=== PATIENT | female | born 1940 | race Caucasian/White ===

== ENCOUNTER → 2018-07-24 12:48 | Outpatient (CLI) | payer OTHER, SELFPAY ==
--- NOTE | 2018-07-24 | DI.MRI.S_ITS ---
PROCEDURE: MR LUMBAR SPINE WO CON INDICATIONS: LUMBAR SPINE PAIN TECHNIQUE: Noncontrast sagittal T1 spin echo and T2 fast echo, sagittal STIR, axial T1 and T2 fast spin echo through the lumbar spine. In cases with scoliosis, additional coronal T2 fast spin echo may be performed. COMPARISON: None. FINDINGS: Image quality: Excellent. Alignment and Curvature: There is trace retrolithesis of L1 on L2, L2 on L3, L3 on L4, trace anterolithesis of L4 on L5. Bone Marrow: Marrow is of normal overall signal. Severe reactive endplate changes are present at T12-L1, moderate at L3-4, mild at L1-2, L2-3, No acute vertebral body compression fractures. Spinal Cord: Conus medullaris terminates at the T12-L1 level. Visualized cord demonstrates normal signal and size. Paraspinous Soft Tissues: No paravertebral masses. Severe dessication from L1-L3-4, mild L4-5, minimal L5-S1. T12-L1: Mild disc bulge with small right posterior lateral extrusion. There is minimal spinal stenosis. No foraminal narrowing. L1-L2: Mild disc bulge with mild to moderate spinal stenosis. Mild left foraminal narrowing with facet and ligamentum flavum hypertrophy L2-L3: Mild disc bulge at moderate to severe spinal stenosis. There is mild epidural lipomatosis. Moderate bilateral foraminal narrowing with facet and ligamentum flavum hypertrophy. L3-L4: Mild disc bulge with severe spinal stenosis. There is moderate bilateral foraminal narrowing with facet and ligamentum flavum hypertrophy. Epidural lipomatosis is present. L4-L5: Mild disc bulge with severe spinal stenosis. Motion is present at this level. Mild bilateral foraminal narrowing with facet and ligamentum flavum hypertrophy. Epidural lipomatosis is present. L5-S1: Mild disc bulge without spinal stenosis. Minimal bilateral foraminal narrowing with facet and ligamentum flavum hypertrophy. IMPRESSION: 1. Multilevel degenerative changes. 2. Multilevel disc bulges including small right posterior lateral extrusion at T12-L1. 3. Multilevel spinal stenosis, severe at L3-4 and L4-5 secondary to disc bulge with contributing factors retrolisthesis and facet/ligamentum flavum arthropathy. In addition, epidural lipomatosis is present. 4. Overall, mild/moderate bilateral foraminal narrowing secondary to facet arthropathy. Dictated by: Debbie Lind M.D. on 07/24/2018 at 15:55 Approved by: eDbbie Lind M.D. on 07/24/2018 at 16:40
== END ==
PROVIDERS: Visit Provider Orthopaedic Surgery
DX: M51.36 Other intervertebral disc degeneration, lumbar region (principal); M51.37 Other intervertebral disc degeneration, lumbosacral region; M51.25 Other intervertebral disc displacement, thoracolumbar region; M48.061 Spinal stenosis, lumbar region without neurogenic claudication; M48.07 Spinal stenosis, lumbosacral region; E88.2 Lipomatosis, not elsewhere classified; M43.16 Spondylolisthesis, lumbar region; M47.816 Spondylosis without myelopathy or radiculopathy, lumbar region
CPT/HCPCS: 72148

== ENCOUNTER → 2019-01-05 12:27 | Outpatient (CLI) | payer OTHER, SELFPAY | PROVIDERS: Visit Provider Internal Medicine | DX: N95.9 Unspecified menopausal and perimenopausal disorder (principal); E11.9 Type 2 diabetes mellitus without complications; Z85.3 Personal history of malignant neoplasm of breast | CPT/HCPCS: 77080 ==